=== PATIENT | female | born 1965 | race Caucasian/White ===

== ENCOUNTER 2022-05-15 11:25 | Outpatient (CLI) | payer BC, SELFPAY ==
--- NOTE | ~2022-05-15 | US_ITS ---
EXAMINATION: US pelvic complete w TV DATE: 05/15/2022 11:58 INDICATION: Menorrhagia. Patient is not postmenopausal. Comparison:No prior studies for comparison. TECHNIQUE: Multiple transabdominal and endovaginal sonographic images of the pelvis performed. FINDINGS: The uterus measures 18.6 x 7.1 x 8 cm. The endometrial complex measures 1.5 cm. The ovaries are not visualized. There is no free fluid in the pelvis. There are no abnormal masses seen on either side. IMPRESSION: 1. Enlarged uterus. Endometrial thickening measuring 1.5 cm. 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
== END 2022-05-15 11:26 ==
PROVIDERS: PCP Physician Assistant; Visit Provider Physician Assistant
DX: N92.1 Excessive and frequent menstruation with irregular cycle (principal); N85.2 Hypertrophy of uterus; R93.89 Abnormal findings on diagnostic imaging of other specified body structures
CPT/HCPCS: 76830; 76856

== ENCOUNTER 2024-05-02 10:22 | Outpatient (CLI) | payer BC, OTHER, SELFPAY ==
--- NOTE | ~2024-05-02 | MM_ITS ---
EXAMINATION: MM screening jose BI w debbie HISTORY: Screening mammogram TECHNIQUE: Craniocaudal and mediolateral oblique 3-D tomosynthesis images were obtained and synthetic 2-D images were generated. CAD analysis was submitted and interpreted. COMPARISON: No prior mammogram is available for comparison at this institution. BREAST PARENCHYMAL COMPOSITION:Not Dense. The breasts are almost entirely fatty FINDINGS: No suspicious mass, calcification, or architectural distortion are identified in either keyla ast to suggest malignancy. There has been no suspicious interval change. IMPRESSION: No mammographic evidence of malignancy. Recommend routine screening mammography in one year. BI-RADS Category 1: Negative Reviewed, dictated and finalized at location . 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
== END 2024-05-02 10:23 | disposition home or self-care (01) ==
LOC: MICIMG 10:23
PROVIDERS: PCP Physician Assistant; Visit Provider Physician Assistant
DX: Z12.31 Encounter for screening mammogram for malignant neoplasm of breast (principal)
CPT/HCPCS: 77063; 77067

== ENCOUNTER 2025-02-15 22:16 | Emergency (ER) | payer BC, OTHER, SELFPAY ==
--- OUTSIDE RECORDS SUMMARY | 2008-01-09 03:36 | XMS_ITS | Continuity of Care Document ---
Author Organization [facility] Address [address] [place] [address] Phone Care Team Providers Care Jr. Java Developer Name Role Phone Sainz OD, Robin Unavailable Unavailable Procedures Procedure Date CL Replacement - [facility] Disp W/BW Soft [facility] CL Replacement - [facility] Disp W/BW Soft [facility] CL Replacement - [facility] Disp W/BW Soft [facility] Eye Exam & Treatment Refraction CL Replacement - [facility] Disp W/BW Soft [facility] Medical CL Replacement - [facility] Disp W/BW Soft [facility] Advance Directives Directive Yes / No Effective Date File Name No Information Encounters Encounter Description Practice Location Reason(s) For Visit Diagnoses Date Provider Providers Copied on Encounter [facility], [address] [place] [address] [address], [place], [place], [id number], [place] tel:[phone] SEC [facility] No Information 8-200 8 Sainz OD Robin. [address] , [address], [place], [address], . tel:[phone] [facility], [address], [place], [place], [address], tel:[phone] [facility] No Information May-0 7-200 8 Sainz OD Robin. [address] [place] [address] , [address], [place], [place], [facility], . tel:[phone] Referring Provider: Robin Sainz OD A, [address] [place], [place] [address], [place], [place], [facility]. tel:[phone] [facility] Eye [facility], [address] [place] [address] [address], [place], [place], [address], tel:[phone] [facility] No Information Den-1 1-200 8 Sainz OD Robin. [address] [place] [address] , [address], [place], [place], [facility], . tel:[phone] [facility], [address] [place] [address] [address], [place], [place], [address], tel:[phone] [facility] No Information Aug-0 3-200 7 Sainz OD Robin. [address] [place] [address] [address], [address], [place], [place], [facility], [place]. tel:[phone] [facility], [address] [place] [address] [address], [place], [place], [address], tel:[phone] [facility] No Information Mar-0 7-200 7 Sainz OD Robin. [address] [place] [address] , [address], [place], [place], [facility], . tel:[phone] Family History Family Member Type Diagnosis Age At Onset No Information Payers Payer name Insurance type Covered libertarian ID Authoriza tion(s) No Information Social History Type Description Quantity Date Captured Comments Sex Female Smoking Status No Information Chief Complaint And Reason For Visit No Information Reason For Referral Reason For Referral No Information History Of Present Illness Encounter Date Complaint History Of Prese nt Illness No Information Functional Status Date Functional Assessmen t No Information Instructions Date Instruction Additional Infor mation No Information Assessments Type Assessment Date No Information Patient Care Teams Name Effective Dates (start - stop) Status Members No Information
--- OUTSIDE RECORDS SUMMARY | 2011-02-16 19:00 | XMS_ITS | Continuity of Care Document ---
Author Organization [facility] Address [address] [place] [address] Phone Care Team Providers Care Recruiter Coordinator Name Role Phone Amrita Veras MD Unavailable Unavailable Medications Medication Instructions Dosage Effective Dates (start - stop) Status Comments AMOXICILLIN 500 MG CAPSULE 1 TID - Active IBUPROFEN 200MG TABS 3 DIRECTE - Ac tive [facility] IBUPROFEN 200 MG TABLET 3 DIRECTE - Active Advance Directives Directive Yes / No Effective Date File Name No Information Encounters Encounter Description Practice Location Reason(s) For Visit Diagnoses Date Provider Providers Copied on Encounter [facility], [address], [place], [place], [address] , tel: [phone] [facility] No Information 0 6-201 1 Rito Crowe. [address], [address], [place], [place], [address], . tel:[phone] [facility], [address], [place], [place], [address] , tel: [phone] [facility] LUMBAGO 0-201 0 Conversion Doctor. [address], [place], [address], . [facility], [address], [place], [place], [address] , tel: [phone] [facility] ACUTE SINUSITIS NOSACUTE BRONCHITIS 9-200 7 Rito Crowe. [address], [address], [place], [place], [address], . tel: [phone] [facility], [address], [place], [place], [address] , tel: [phone] [facility] SIALOADENITIS 5200 5 Rito Crowe. [address], [address], [place], [place], [address], [place]. 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 [address], [address], [place], [place], [address], [place]. tel:[phone] Family History Family Member Type Diagnosis Age At Onset No Information Immunizations Vaccine Date Status Comments 37145 - TD administered Source: Source Unspecified Payers Payer name Insurance type Covered republican ID Authoriza tion(s) No Information Social History [...]
[2025-02-15 22:20] VITALS: BP 154/98; PULSE 98; RESP 16; TEMP 36.5; O2SAT 78
--- OUTSIDE RECORDS SUMMARY | 2025-02-16 00:36 | XMS_ITS | Clinical Summary ---
Author Organization [facility] Address [address] [place] [address] Care Team Providers Care Radio Maintainer Name Role Phone Carey Alexander Primary Care Provider [phone] Allergies No known active allergies Medications cholecalcifero l (VITAMIN D-3) 5,000 unit capsuleIndicat ions:Vitamin D Deficiency Take 1 capsule (5,000 Units total) by mouth every morning Active ferrous fumarate 325 mg (106 mg iron) tabletIndicati ons:Iron Deficiency Anemia Take 1 tablet (325 mg total) by mouth daily Active polyethylene glycol (MIRALAX) 17 gram/dose powder Take 17 g by mouth daily 507 g 08/07/19 23 Active Additional Information Patient not taking.Reported on 08/28/[address] (CYMBALTA) 60 mg capsule TAKE 1 CAPSULE BY MOUTH EVERY DAY 90 capsule 1 09/05/19 25 Active chlorthalidone (HYGROTON) 25 mg tabletIndicati ons:Hypertensi on associated with diabetes (HCC) TAKE 1 TABLET (25 MG TOTAL) BY MOUTH DAILY. 90 tablet 1 10/20/19 25 Active propranoloL (INDERAL) 40 mg tabletIndicati ons:Hypertensi on associated with diabetes (HCC) TAKE 1 TABLET BY MOUTH TWICE A DAY 180 tablet 1 10/20/19 25 Active tolterodine LA (DETROL LA) 4 mg 24 hr capsuleIndicat ions:OAB (overactive bladder) TAKE 1 CAPSULE BY MOUTH EVERY DAY 90 capsule 2 01/16/20 25 Active tirzepatide (Mounjaro) 15 mg/0.5 mL pen injector injectionIndic ations:Control led type 2 diabetes mellitus without complication, without long-term current use of insulin INJECT 15 MG UNDER THE SKIN EVERY 7 DAYS 6 mL 1 01/23/20 25 Active tirzepatide (MOUNJARO) 15 mg/0.5 mL pen injector injectionIndic ations:type 2 diabetes mellitus Inject 0.5 mL (15 mg total) under the skin every 7 days 6 mL 1 07/24/19 25 025 Discontinued Active Problems Problem Noted Date Diagnosed Date Lesion of soft palate 03/16/2024 Assessment & Plan (03/19/2024 11:09 AM CDT): This is a papilloma I explained. I recommended removal of it and she wanted to go ahead and pursue that. It was removed without difficulty and I recommended a follow up in about 3 months to recheck this area. 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 It is viral in origin. These sometimes can progress to a cancerous lesion. I recommended excision of this lesion. I do not think that the tissue needs to be sent because it appears to be completely benign. She wanted to go ahead and pursue that. It was done without difficulty. She can resume normal activities. I would like to have her follow-up in about 3 months to recheck this area. She is fine with that. Tonsil pain 02/29/2024 Assessment & Plan (02/29/2024 8:16 AM CDT): Patient states the dentist told her over a year ago she has a dhesion on her left tonsil. She states this area has never really resolved or gone away. It is very sensitive times. Unsure if it is actually growing. Recommend referral to ENT for further evaluation and full visualization as I am unable to really visualize the entire area in the office due to her mouth anatomy. Will await recommendations from ENT. Fatigue 11/29/2023 Assessment & Plan (05/30/2024 8:38 AM WHEEL ASSEMBLER): Probably multifactorial. Check labs and followup to re-evaluate Assessment & Plan (11/29/2023 9:27 AM CDT): Probably multifactorial. Check labs and followup to re-evaluate Daytime sleepiness 11/29/2023 Assessment & Plan (11/29/2023 9:28 AM CDT): Patient has noting daytime sleepiness. She is at [facility] and has obesity. Recommend a sleep study. Prefers to be at [facility]. Referral placed Morbid obesity 02/16/2023 Assessment & Plan (08/28/2024 7:16 AM CDT): Discussed the patient's BMI. The BMI is above average. BMI management plan is completed. BMI Follow-up includes: nutrition counseling, exercise counseling and education provided. Assessment & Plan (05/30/2024 7:40 AM WHEEL ASSEMBLER): Discussed the patient's BMI. The BMI is above average. BMI management plan is completed. BMI Follow-up includes: nutrition counseling, exercise counseling and education provided. Assessment & Plan (02/29/2024 7:19 AM CDT): Discussed the patient's BMI. The BMI is above average. BMI management plan is completed. BMI Follow-up includes: nutrition counseling, exercise counseling and education provided. Assessment & Plan (11/29/2023 7:24 AM CDT): Discussed the patient's BMI. The BMI is above average. BMI management plan is completed. BMI Follow-up includes: nutrition counseling, exercise counseling and education provided. Assessment & Plan (09/02/2023 7:46 PM CDT): Discussed the patient's BMI. The BMI is above average. BMI management plan is completed. BMI Follow-up includes: nutrition counseling, exercise counseling and education provided. Will stop the Ozempic in transitioned to Mounjaro for diabetes control as well as assistance with weight management. Assessment & Plan (02/16/2023 11:30 AM CDT): Discussed the patient's BMI. The BMI is above average. BMI management plan is completed. BMI Follow-up includes: nutrition counseling, exercise counseling and education provided. BMI 45.0-49.9, adult 02/16/2023 Assessment & Plan (08/28/2024 7:16 AM CDT): Discussed the patient's BMI. The BMI is above average. BMI management plan is completed. BMI Follow-up includes: nutrition counseling, exercise counseling and education provided. Assessment & Plan (05/30/2024 7:39 AM WHEEL ASSEMBLER): Discussed the patient's BMI. The BMI is above average. BMI management plan is completed. BMI Follow-up includes: nutrition counseling, exercise counseling and education provided. Assessment & Plan (02/29/2024 7:19 AM CDT): Discussed the patient's BMI. The BMI is above average. BMI management plan is completed. BMI Follow-up includes: nutrition counseling, exercise counseling and education provided. Assessment & Plan (11/29/2023 7:24 AM CDT): Discussed the patient's BMI. The BMI is above average. BMI management plan is completed. BMI Follow-up includes: nutrition counseling, exercise counseling and education provided. Assessment & Plan (09/02/2023 7:46 PM CDT): Discussed the patient's BMI. The BMI is above average. BMI management plan is completed. BMI Follow-up includes: nutrition counseling, exercise counseling and education provided. Assessment & Plan (02/16/2023 11:30 AM CDT): Discussed the patient's BMI. The BMI is above average. BMI management plan is completed. BMI Follow-up includes: nutrition counseling, exercise counseling and education provided. Iron deficiency anemia due to chronic blood loss 10/07/2022 Assessment & Plan (09/02/2023 7:44 PM CDT): Patient with history of anemia. Most recent labs show that it has normalized. May stop the iron supplementation. Recheck labs in the next year Assessment & Plan (02/16/2023 7:42 PM CDT): Check labs to follow-up anemia due to history of menorrhagia prior to hysterectomy Assessment & Plan (10/07/2022 8:27 AM CDT): History of iron-deficiency anemia secondary to menorrhagia. Status post hysterectomy for cancer so has not had any type of bleeding since surgery about 2 months ago. Recheck CBC. She is decreased her iron to 1 daily due to tolerability. If her hemoglobin hematocrit and MCV are backup into normal range will stop the iron supplementation History of endometrial cancer 06/24/2022 Overview (10/07/2022): s/p RA-TLH/BSO/SLNB=--Dr. Hewitt 08/2022 --------Stage IA G1- 2/7 mm invasion ;LOW RISK MMR-neg;Negative LVSI; HER2 negative; She has done well. - Ok to follow up with primary FARM IMPLEMENT MECHANIC for surveillance every 6 months x 2 years then annually there after. Assessment & Plan (09/09/2024 7:48 PM CDT): Recovered well from Vag HYST. In 08/[address] Hewitt at [facility] Plan from his 08/2022 note: Stage IA G1- 2/7 mm invasion ;LOW RISK MMR-neg;Negative LVSI; HER2 negative; She has done well. - Ok to follow up with primary FARM IMPLEMENT MECHANIC for surveillance every 6 months x 2 years then annually there after. Planning [id number] visits (February and August thru 02/2025) for pelvic exam here so she does't have to travel to [facility]. Exam today seem to be free of disease progression. We check in 6 months Assessment & Plan (05/30/2024 8:37 AM WHEEL ASSEMBLER): History Endometrial Cancer. She requires bi annual pelvic exam (February and August). Prefers here so she doesn't have to go to [facility]. Assessment & Plan (02/29/2024 8:17 AM CDT): Exam today did not reveal any active signs or symptoms of her endometrial cancer. Continue with very close monitoring of endometrial cancer. Patient prefers to have q.6 month exams in my office to avoid going to [place]. Next exam should be in August of 2024. Assessment & Plan (11/29/2023 8:49 AM CDT): Continue with very close monitoring of endometrial cancer. Patient prefers to have q.6 month exams in my office to avoid going to [place]. Next exam should be in February of 2024. Assessment & Plan (09/02/2023 7:45 PM CDT): Patient with history of endometrial cancer. Status post hysterectomy in August of 2022. She followed up in [address] Hewitt but prefers to do additional follow-up here to avoid the trip into [place]. Today exam was normal. No palpable nodes. Will continue to monitor q.6 months for 2 years (thru 08/2025). If patient notices any changes before then she is to follow up immediately. Assessment & Plan (02/16/2023 7:42 PM CDT): s/p RA-TLH/BSO/SLNB=--Dr. Hewitt 08/2022 --------Stage IA G1- 2/7 mm invasion ;LOW RISK MMR-neg;Negative LVSI; HER2 negative; She has done well. - Ok to follow up with primary FARM IMPLEMENT MECHANIC for surveillance every 6 months x 2 years then annually there after. Today I performed close surveillance with exam which did not show any signs of cancerous changes. Will have her follow-up in 6 months to reassess again. Assessment & Plan (10/07/2022 8:26 AM CDT): s/p RA-TLH/BSO/SLNB=--Dr. Hewitt 08/2022 --------Stage IA G1- 2/7 mm invasion ;LOW RISK MMR-neg;Negative LVSI; HER2 negative; She has done well. - Ok to follow up with primary FARM IMPLEMENT MECHANIC for surveillance every 6 months x 2 years then annually there after. Assessment & Plan (08/30/2022 9:06 PM CDT): Patient recently diagnosed with endometrial cancer. It was confined so patient will not require radiation or chemotherapy. She will require very close follow-up. This will be Q 6 months with exam. Diabetes mellitus type 2, controlled, without co mplications 06/22/2022 Assessment & Plan (09/09/2024 7:49 PM CDT): Check labs Assessment & Plan (05/30/2024 8:38 AM WHEEL ASSEMBLER): tressed importance of continued A1c control to minimize the terminal system operator effects of diabetes. Bring accuchecks to office when instructed to do so. Check A1c about every 3-6 months. Take medication as prescribed. Get annual eye exam. Encouraged IBSMARK/Statin if able to tolerate. Encouraged weight control and encouraged diabetic diet and exercise. A1c is stable at 6.6. ContinueMounjaro 10 Assessment & Plan (02/29/2024 8:16 AM CDT): Stressed importance of continued A1c control to minimize the prison effects of diabetes. Bring accuchecks to office when instructed to do so. Check A1c about every 3-6 months. Take medication as prescribed. Get annual eye exam. Encouraged BISMARK/Statin if able to tolerate. Encouraged weight control and encouraged diabetic diet and exercise. Continue Mounjaro 10 Assessment & Plan (11/29/2023 8:58 AM CDT): Stressed importance of continued A1c control to minimize the terminal system operator effects of diabetes. Bring accuchecks to office when instructed to do so. Check A1c about every 3-6 months. Take medication as prescribed. Get annual eye exam. Encouraged BISMARK/Statin if able to tolerate. Encouraged weight control and encouraged diabetic diet and exercise. Patient is not recognizing when she has full with the majora. A1c has been tightly controlled but will increase to 7.5 to see if we can assist in weight reduction. New prescription sent. Patient will follow up in February with labs at that time Assessment & Plan (09/02/2023 7:46 PM CDT): Stressed importance of continued A1c control to minimize the terminal system operator effects of diabetes. Bring accuchecks to office when instructed to do so. Check A1c about every 3-6 months. Take medication as prescribed. Get annual eye exam. Encouraged BISMARK/Statin if able to tolerate. Encouraged weight control and encouraged diabetic diet and exercise. Patient would still benefit from additional weight loss. Will have her stop the Ozempic and transitioned to Mounjaro 5 mg weekly. Will titrate up as needed. Assessment & Plan (10/07/2022 8:59 AM CDT): Stressed importance of continued A1c control to minimize the terminal system operator effects of diabetes. Bring accuchecks to office when instructed to do so. Check A1c about every 3-6 months. Take medication as prescribed. Get annual eye exam. Encouraged BISMARK/Statin if able to tolerate. Encouraged weight control and encouraged diabetic diet and exercise. Patient is tolerating the Ozempic well. She is preparing to increase to 0.5 mg per week. If tolerated she is to call in the 3rd injection this box and will increase it to 1 mg. Will check CMP to make sure she is tolerating the product well. Follow- up in mid December for A1c and CMP at that time Assessment & Plan (08/09/2022 8:41 PM WHEEL ASSEMBLER): Stressed importance of continued A1c control to minimize the prison effects of diabetes. Bring accuchecks to office when instructed to do so. Check A1c about every 3-6 months. Take medication as prescribed. Get annual eye exam. Encouraged BISMARK/Statin if able to tolerate. Encouraged weight control and encouraged diabetic diet and exercise. Patient is unable to tolerate metformin at high enough doses to be effective. She is experiencing soft stool and diarrhea and GI upset. Recommend considering Mounjaro. She will benefit from diabetes control as well as weight loss. Assessment & Plan (06/22/2022 2:09 PM WHEEL ASSEMBLER): New Diagnosis Diabetes. Discussed with patient at length diabetes, pathogenesis, prison sequela, end organ damage, diet/exercise/weight loss, and medication options for treatment. Reviewed A1c, normal values, goals of treatment and need to monitor about every 90 days until well regulated. Discussed importance of annual DM eye exams. Reviewed benefits of BISMARK and Statin as a diabetic. Discussed how DM affects the kidney's and ways to monitor. Reviewed increased CV risk and importance of tight control. Reviewed foot care and need to wear shoes to check feet on a regular basis to avoid terminal system operator problems. Offered referral to shipping manager. Discussed treatment options. Reviewed metformin, G LP is, SG LTsand insulin. Reviewed risks benefits alternatives side effects and proper use. She is most interested in starting Mounjaro. This will help manage her diabetes but also help contribute to assistance with weight loss effort. Encouraged her to monitor her intake and increase activity as she is able. Will send out prescription for 5 mg to take weekly As able to provide samples for 2.5 mg to start now x 4 weeks then start the 5mg. Reviewed proper injection technique patient was able to reach back and does feel comfortable with giving herself an injection. No history of pancreatitis. Breast cancer screening by mammogram 05/11/2022 Assessment & Plan (09/02/2023 7:43 PM CDT): Mammogram order provided. Strongly encouraged to get scheduled Assessment & Plan (02/16/2023 7:43 PM CDT): Mammogram order provided Assessment & Plan (10/07/2022 8:26 AM CDT): Mammogram order provided at last visit. She will call to schedule Assessment & Plan (05/11/2022 11:49 AM WHEEL ASSEMBLER): Mammogram order provided Ventral hernia without obstruction or gangrene 0 02/11/2020 Overview (02/11/2020): 01/2020 CT -- infraumbilical ventricular abdominal wall hernia containing mesenteric fat and nonobstructing loops of the small bowel. Assessment & Plan (02/11/2020 9:14 AM CDT): Reviewed s/s incarcerated bowel. Will monitor closely and discuss referral at next visit, after her acute pain has resolved. Fatty liver 02/11/2020 Overview (02/11/2020): CT done in January of 2020. Assessment & Plan (02/11/2020 9:14 AM CDT): Reviewed diet and will continue to monitor liver enzymes. Seasonal allergies 08/22/2019 Assessment & Plan (08/22/2019 9:45 PM CDT): Start Singulair, antihistamine (Claritin OR Zyrtec), Mucinex 12hour and Steroid nasal spray (Flonase). Push fluids. Rest. Supportive care. If sxs worsen or don\'t improve, pt is to followup in the office. Other fatigue 01/28/2019 Assessment & Plan (02/16/2023 7:43 PM CDT): Probably multifactorial. Check labs and followup to re-evaluate Assessment & Plan (05/11/2022 11:45 AM WHEEL ASSEMBLER): Probably multifactorial. Check labs and followup to re-evaluate Assessment & Plan (01/28/2019 6:16 PM CDT): Probably multifactorial. Check labs and followup to re-evaluate Lower extremity edema 01/28/2019 Assessment & Plan (04/03/2019 1:43 PM CDT): Improving with diet, sodium reduction. Use support hose. Exercise/lose weight Assessment & Plan (01/28/2019 6:16 PM CDT): Unknown etiology. Start with Lasix. Eat a daily banana to avoid K supplement. Keep elevated. Decrease sodium OAB (overactive bladder) 01/20/2019 Assessment & Plan (11/29/2023 8:56 AM CDT): Continue with Detrol as symptoms are stable Assessment & Plan (05/11/2022 11:43 AM WHEEL ASSEMBLER): This is a significant, separately identifiable problem that was evaluated and managed on the same day as the wellness exam Restart DetrolLA 1 daily. Will refer to grinder outside diameter for evaluation of her menorrhagia and encouraged her to discuss possibility of stress urine incontinence as a component of with the overactive bladder as it seems to have some positional relationship as well as increased symptoms with heavier bleeding. She is tolerated well in the past. Hypertension associated with diabetes 01/20/2019 Assessment & Plan (05/30/2024 8:37 AM WHEEL ASSEMBLER): Bp is stable/in acceptable range for any co-morbidities. Encouraged to limit sodium intake and exercise for weight control. Stressed importance of continued A1c control to minimize the prison effects of diabetes. Bring accuchecks to office when instructed to do so. Check A1c about every 3-6 months. Take medication as prescribed. Get annual eye exam. Encouraged BISMARK/Statin if able to tolerate. Encouraged weight control and encouraged diabetic diet and exercise. A1c is stable at 6.6. ContinueMounjaro 10 Continue propranolol 40 mg b.i.d. and chlorthalidone 25 daily Assessment & Plan (11/29/2023 8:57 AM CDT): Bp is stable/in acceptable range for any co-morbidities. Encouraged to limit sodium intake and exercise for weight control. Stressed importance of continued A1c control to minimize the prison effects of diabetes. Bring accuchecks to office when instructed to do so. Check A1c about every 3-6 months. Take medication as prescribed. Get annual eye exam. Encouraged BISMARK/Statin if able to tolerate. Encouraged weight control and encouraged diabetic diet and exercise. Continue propranolol 40 mg and chlorthalidone 25. Patient is not recognizing when she has full with the majora. A1c has been tightly controlled but will increase to 7.5 to see if we can assist in weight reduction. New prescription sent. Patient will follow up in February with labs at that time Assessment & Plan (09/02/2023 7:43 PM CDT): Bp is stable/in acceptable range for any co-morbidities. Encouraged to limit sodium intake and exercise for weight control. Continue Inderal 40 mg b.i.d. and chlorthalidone 25 Assessment & Plan (02/16/2023 7:43 PM CDT): Bp is stable/in acceptable range for any co-morbidities. Encouraged to limit sodium intake and exercise for weight control. Continue propranolol and chlorthalidone Assessment & Plan (10/07/2022 8:25 AM CDT): Bp is stable/in acceptable range for any co-morbidities. Encouraged to limit sodium intake and exercise for weight control. Continue chlorthalidone and metoprolol. She states she missed her medicines this morning which is probably why it is just slightly elevated. Monitor at home Assessment & Plan (08/30/2022 9:05 PM CDT): Stressed importance of continued A1c control to minimize the terminal system operator effects of diabetes. Bring accuchecks to office when instructed to do so. Check A1c about every 3-6 months. Take medication as prescribed. Get annual eye exam. Encouraged BISMARK/Statin if able to tolerate. Encouraged weight control and encouraged diabetic diet and exercise. Patient was unable to tolerate metformin due to GI issues. Will try Mounjaro. Reviewed risks benefits alternatives side effects and proper use. Will start at 2.5. Titrate up as tolerated. Recheck CMP in about a month. Assessment & Plan (06/22/2022 2:06 PM WHEEL ASSEMBLER): Bp is stable/in acceptable range for any co-morbidities. Encouraged to limit sodium intake and exercise for weight control. Continue current regimen Assessment & Plan (05/11/2022 11:44 AM WHEEL ASSEMBLER): This is a significant, separately identifiable problem that was evaluated and managed on the same day as the wellness exam Patient needs to restart her Inderal 40 mg b.i.d.. She would like to restart the beta-jojo as she likes the extra help with her anxiety. Stressed the importance of taking medication as indicated to avoid a blood pressure of 160/110 and the side effects and sequela that can result from it. Instead of starting Lasix will start chlorthalidone 25 as she does seem to retain a little bit of fluid. She will be checking electrolytes in the next week to make sure they are stable. Encouraged her to take home readings and we should see a drop in the pressure is in the next week or 2. She will be back in the office in 4 weeks. If she has any problems or concerns she is to call the office immediately Assessment & Plan (01/28/2019 6:13 PM CDT): Bp is elevated range for any co-morbidities. Encouraged to limit sodium intake and exercise for weight control. Will add diuretic and see how control changes. Lumbar back pain 01/20/2019 Moderate episode of recurrent major depressive d isorder 01/20/2019 Assessment & Plan (05/30/2024 8:37 AM WHEEL ASSEMBLER): Doing well with Cymbalta 30 but would benefit to increase to 60. May take 2/30 mg tablets until exhausted new prescription for 60 was sent to pharmacy. Assessment & Plan (11/29/2023 8:57 AM CDT): Depression symptoms have been stable with Cymbalta 30 Assessment & Plan (09/02/2023 7:43 PM CDT): Symptoms are stable with the Cymbalta 30 mg. Refills available at pharmacy Assessment & Plan (05/11/2022 11:44 AM WHEEL ASSEMBLER): This is a significant, separately identifiable problem that was evaluated and managed on the same day as the wellness exam Patient would like to restart Cymbalta. She ran out of it and did not refill it primarily due to cost. Her insurance has now change. Will restart 30 mg daily reassess in a month and bump up to 60 if tolerated. Assessment & Plan (01/28/2019 6:14 PM CDT): Continue the Cymbalta Anxiety 01/20/2019 Vitamin D deficiency 01/20/2019 Assessment & Plan (05/30/2024 8:37 AM WHEEL ASSEMBLER): Supplement Assessment & Plan (11/29/2023 8:57 AM CDT): Supplement Assessment & Plan (05/11/2022 11:44 AM WHEEL ASSEMBLER): Supplement Bilateral leg numbness 03/23/2018 Resolved Problems Problem Noted Date Diagnosed Date Resolved Date Diabetic neuropathy, type II diabetes mellitus 05/30/2024 05/30/2024 Need for Tdap vaccination 05/30/2024 Assessment & Plan (05/30/2024 8:38 AM WHEEL ASSEMBLER): Tdap updated in the office today Need for influenza vaccination 05/30/2024 09/09/2024 Assessment & Plan (05/30/2024 8:38 AM WHEEL ASSEMBLER): Flu vaccine updated in the office today Diabetic neuropathy, type II diabetes mellitus 08/09/2022 09/02/2023 Assessment & Plan (02/16/2023 7:42 PM CDT): Stressed importance of continued A1c control to minimize the prison effects of diabetes. Bring accuchecks to office when instructed to do so. Check A1c about every 3-6 months. Take medication as prescribed. Get annual eye exam. Encouraged BISMARK/Statin if able to tolerate. Encouraged weight control and encouraged diabetic diet and exercise. Continue with Ozempic 1 mg. Will continue to monitor closely. BMI 50.0-59.9, adult 07/29/2022 023 Assessment & Plan (10/07/2022 8:26 AM CDT): Discussed the patient's BMI. The BMI is above average. BMI management plan is completed. BMI Follow-up includes: nutrition counseling, exercise counseling and education provided. Assessment & Plan (08/30/2022 9:06 PM CDT): Discussed the patient's BMI. The BMI is above average. BMI management plan is completed. BMI Follow-up includes: nutrition counseling, exercise counseling and education provided. Assessment & Plan (07/29/2022 2:52 PM WHEEL ASSEMBLER): Discussed the patient's BMI. The BMI is above average. BMI management plan is completed. BMI Follow-up includes: nutrition counseling, exercise counseling and education provided. Complex atypical endometrial hyperplasia 06/24/2022 08/30/2022 Overview (06/24/2022): Added automatically from request for surgery [id number] Excessive bleeding in premenopausal period 06/22/2022 08/30/2022 Assessment & Plan (06/22/2022 2:07 PM WHEEL ASSEMBLER): Reviewed with patient the Provera is probably shutting her thickened lining right now. Concern with possibility for anemia so encouraged her to start iron [id number] with vitamin-C. Will await recommendations from Dr. Hewitt, Gyne Onc as she is expecting hysterectomy. BMI 50.0-59.9, adult 06/22/2022 023 Assessment & Plan (06/22/2022 2:07 PM WHEEL ASSEMBLER): Discussed the patient's BMI. The BMI is above average. BMI management plan is completed. BMI Follow-up includes: nutrition counseling, exercise counseling and education provided. Morbid obesity 06/22/2022 02/16/2023 Assessment & Plan (10/07/2022 8:26 AM CDT): Discussed the patient's BMI. The BMI is above average. BMI management plan is completed. BMI Follow-up includes: nutrition counseling, exercise counseling and education provided. Assessment & Plan (08/30/2022 9:05 PM CDT): Discussed the patient's BMI. The BMI is above average. BMI management plan is completed. BMI Follow-up includes: nutrition counseling, exercise counseling and education provided. Assessment & Plan (08/09/2022 8:32 PM WHEEL ASSEMBLER): Discussed the patient's BMI. The BMI is above average. BMI management plan is completed. BMI Follow-up includes: nutrition counseling, exercise counseling and education provided. Assessment & Plan (06/22/2022 2:07 PM WHEEL ASSEMBLER): Discussed the patient's BMI. The BMI is above average. BMI management plan is completed. BMI Follow-up includes: nutrition counseling, exercise counseling and education provided. Sore throat 05/11/2022 09/02/2023 Assessment & Plan (05/11/2022 11:46 AM WHEEL ASSEMBLER): This is a significant, separately identifiable problem that was evaluated and managed on the same day as the wellness exam Patient started noting sore throat congestion fever in the last 24-48 hours. She had a negative COVID flu and strep test here in the office. Advised there is a chance for a false negative. If her symptoms persist she needs to follow-up for retesting. Encouraged Tylenol or Motrin as needed for aches and pains or fever. She can use antihistamine and Mucinex to assist with her symptoms at this point. Stressed the importance of avoiding any product with Sudafed as it will have a negative effect on her already high blood pressure. Annual physical exam 05/11/2022 024 Assessment & Plan (09/02/2023 7:45 PM CDT): Encouraged healthy lifestyle, good nutrition and exercise. Encouraged Calcium and Vitamin D and weight bearing exercise for bone health. Reviewed immunizations Reviewed age appropirate screenings. Assessment & Plan (05/11/2022 11:46 AM WHEEL ASSEMBLER): Encouraged healthy lifestyle, good nutrition and exercise. Encouraged Calcium and Vitamin D and weight bearing exercise for bone health. Reviewed immunizations Reviewed age appropirate screenings. Menorrhagia with irregular cycle 05/11/2022 10/07/2022 Assessment & Plan (05/11/2022 11:48 AM WHEEL ASSEMBLER): This is a significant, separately identifiable problem that was evaluated and managed on the same day as the wellness exam Patient has had severe menorrhagia for the last 3-4 years. She had uterine ablation in 2016 and states had some relief for a few years but then started noticing heavy return of her flow. She states she will completely saturate a pad an hour and drop clots bigger than her fist just walking from the bedroom to the bathroom. She is bleeding up to a week every 2-4 weeks. Will check blood work for anemia and other underlying causes for the bleeding including FSH and LH to see if she is truly menopausal based on her age/labs. Check ultrasound. I let patient know there is a concern for cancer as she is bleeding this heavy consistently. She states her mom and sister had similar bleeding patterns as they reached menopause . She is seen Dr. Florence in the past would prefer to follow-up. Provided the information on her take-home sheet for her to contact the office. If she does not get an visit in the next 2-4 weeks she needs to call the office as this needs to be taking care of more urgently. She voices understanding and is in agreement with the plan Lipid screening 05/11/2022 09/02/2023 Assessment & Plan (05/11/2022 11:48 AM WHEEL ASSEMBLER): Check labs Colon cancer screening 05/11/202210/07 Assessment & Plan (05/11/2022 11:49 AM WHEEL ASSEMBLER): Patient would like to repeat Cologuard. She thinks she did it 3-4 years ago. I do not have a record and her current chart which means it was at least 3 years ago. Flank pain 06/02/2020 05/11/2022 Assessment & Plan (06/02/2020 8:23 PM WHEEL ASSEMBLER): See abdominal pain Hematuria 06/02/2020 05/11/2022 Assessment & Plan (06/02/2020 8:24 PM WHEEL ASSEMBLER): Not enough available to send for culture from the office. Will provide order to complete at the lab. Abdominal pain 01/25/2020 05/11/2022 Assessment & Plan (06/02/2020 8:19 PM WHEEL ASSEMBLER): Right flank pain with pain into RLQ and hematuria. Suspect kidney stone -- I also suspect she may have been constipated, causing right sided pain. With the nausea/emesis, recommend considering CT but decided to start with KUB---Reviewed with patient if has increased pain, fever, chills, sweats or unable to urinate or pass stools she is to go to the ER for immediate evaluation. Assessment & Plan (02/11/2020 9:10 AM CDT): RLQ over to suprapubic pain with back pain. Increasing pain, decreasing appetitie. Peritoneal signs (pain with walking) R/o appendix, ovary, bowel involvement like diverticulitis). Was not able to schedule CT same day so instructed patient to consider ER if she has trouble overnight. CT was scheduled for the next morning. It showed 1. No definitive evidence of bowel obstruction 2. Diffuse mucosal thickening of the distal small bowel with adjacent fat stranding fluid which is concerning for enteritis of infectious or inflammatory etiology. No definitive evidence of perforation or drainable fluid collection. 3. Infraumbilical ventral abdominal wall hernia containing mesenteric fat and nonobstructed loop of small bowel. 4. Small amount of free fluid in the right lower quadrant of the abdomen and pelvis which is likely reactive to the enteritis 5. Appendix is visualized without definitive evidence of pericecal or. Appendical inflammatory changes to suggest appendicitis. 6. Mild mucosal thickening of the descending colon and sigmoid colon which is likely related to under distention and less likely to component of colitis or infectious or inflammatory etiology. 7. Scattered colonic diverticula without definitive evidence of diverticulitis 8. Mild circumferential mucosal thickening of the urinary bladder which may be related to distention versus cystitis. Clinical correlation with urinalysis is recommended as clinically indicated. 9. Diffuse hepatic cyst steatosis. The patient was started on Flagyl and Cipro. She is to monitor her symptoms very closely. If she has any increased pain guarding fever chills or sweats she is to call immediately or go to the ER. Discussed risk of perforation and to be made aware of the symptoms and seek care immediately. Encouraged fluids and only for a few days until her stomach settles the pain improves and she may then slowly good progress to a brat diet before continuing on. She is to call early next week with an update on her symptoms. Strep pharyngitis 05/25/2019 05/11/2022 Assessment & Plan (05/28/2019 7:48 PM WHEEL ASSEMBLER): Start antibiotic. Push fluids. Rest. Supportive care. If sxs worsen or don\'t improve, pt is to followup in the office. Reviewed was to avoid continued spread of the strep throat. Cough 05/25/2019 05/11/2022 Assessment & Plan (03/08/2021 4:02 PM CDT): Patient to presume positive COVID until results are available and self isolate for 10 days from the onset of sxs. Check COVID test thru [facility] collection site in [place]. If positive, complete quarantine and consider monoclonal antibodies. If negative, treat sxs and observe. Start Medrol dosepack and Cheratussin. Treat sxs with Tylenol, Cough/cold medication otc and add VitD 5,000IU daily and Zinc 50mg daily. Monitor sxs and call or go to the ER if has any of the following: --trouble breathing --persistent pain or pressure in the chest --new confusion --inability to wake or stay awake -- bluish lips or face If patient has been in close contact with anyone, they should be notified and instructed to quarantine per CDC guidelines for 14 days after last exposure to the positive COVID patient and monitor closely for symptoms of COVID. If they appear they should be tested. Close contact includes: --You were within 6 feet of someone who has COVID-19 for a total of 15 minutes or more --You provided care at home to someone who is sick with COVID-19 --You had direct physical contact with the person (hugged or kissed them) --You shared eating or drinking utensils --They sneezed, coughed, or somehow got respiratory droplets on you Additional Steps to avoid exposure/spread include: Avoid crowded places where close contact with others may occur, such as shopping centers, movie theaters, dormitories, or stadiums. Avoid transit where close contact with others may occur, such as planes, trains, and buses. Maintain a distance of approximately 6 feet from other people whenever possible (spacing out if you are in a line, leaving 2 seats in between others at a waiting room when possible). Wash your hands with soap and water often. If needed, use a hand fibrous wallboard inspector that contains at least 60% alcohol. Clean and disinfect frequently touched surfaces such as tables, doorknobs, countertops, etc daily. Avoid touching your eyes, nose, and mouth when possible. Assessment & Plan (05/28/2019 7:47 PM WHEEL ASSEMBLER): Supportive care. Cheratussing to pharmacy. Upper respiratory infection 04/03/2019 05/11/2022 Assessment & Plan (04/03/2019 1:41 PM CDT): Start antibiotic, antihistamine, and Steroid nasal spray. Robitussin with codeine prn cough. Push fluids. Rest. Supportive care. If sxs worsen or don\'t improve, pt is to followup in the office. BMI 50.0-59.9, adult ([facility]) 04/03/2019 05/11/2022 Assessment & Plan (08/22/2019 11:46 AM CDT): Obesity is unchanged. Discussed the patient's BMI. The BMI is above average. BMI management plan is completed. BMI Follow-up includes: nutrition counseling, exercise counseling and education provided. Assessment & Plan (05/28/2019 7:46 PM WHEEL ASSEMBLER): Obesity is unchanged. Discussed the patient's BMI. The BMI is above average. BMI management plan is completed. BMI Follow-up includes: nutrition counseling, exercise counseling and education provided. Assessment & Plan (04/03/2019 1:44 PM CDT): Obesity is unchanged. Discussed the patient's BMI. The BMI is above average. BMI management plan is completed. BMI Follow-up includes: nutrition counseling, exercise counseling and education provided. Morbid obesity with BMI of 50.0-59.9, adult 01/23/2019 10/07/2022 Assessment & Plan (05/11/2022 11:45 AM WHEEL ASSEMBLER): Discussed the patient's BMI. The BMI is above average. BMI management plan is completed. BMI Follow-up includes: nutrition counseling, exercise counseling and education provided. Assessment & Plan (08/22/2019 11:46 AM CDT): Obesity is unchanged. Discussed the patient's BMI. The BMI is above average. BMI management plan is completed. BMI Follow-up includes: nutrition counseling, exercise counseling and education provided. Assessment & Plan (05/28/2019 7:47 PM WHEEL ASSEMBLER): Obesity is unchanged. Discussed the patient's BMI. The BMI is above average. BMI management plan is completed. BMI Follow-up includes: nutrition counseling, exercise counseling and education provided. Assessment & Plan (04/03/2019 1:44 PM CDT): Obesity is unchanged. Discussed the patient's BMI. The BMI is above average. BMI management plan is completed. BMI Follow-up includes: nutrition counseling, exercise counseling and education provided. Assessment & Plan (01/23/2019 11:59 AM CDT): Obesity is unchanged. Discussed the patient's BMI. The BMI is above average. BMI management plan is completed. BMI Follow-up includes: nutrition counseling, exercise counseling and education provided. Menorrhagia with regular cycle 01/20/2019 05/11/2022 Assessment & Plan (08/22/2019 9:45 PM CDT): S/p ablation with 2 heavy periods these last 2 months. If persists, may consider US Neuropathy 01/20/2019 05/30/2024 Pre-diabetes 01/20/2019 06/22/2022 Assessment & Plan (05/11/2022 11:44 AM WHEEL ASSEMBLER): Pre-diabetes/hyperglycemia is a precursor to Dm. Stressed importance of working on diet (decrease your simple sugars and one carbohydrate with each meal) and increase you exercise to achieve weight loss and this will help prevent you from progressing to diabetes. Assessment & Plan (04/03/2019 1:43 PM CDT): Pre-diabetes is a precursor to Dm. Stressed importance of working on diet (decrease your simple sugars and one carbohydrate with each meal) and increase you exercise to achieve weight loss and this will help prevent you from progressing to diabetes. Assessment & Plan (01/28/2019 6:14 PM CDT): Pre-diabetes is a precursor to Dm. Stressed importance of working on diet (decrease your simple sugars and one carbohydrate with each meal) and increase you exercise to achieve weight loss and this will help prevent you from progressing to diabetes. Immunizations Immunization Administration Dates Next Due Influenza, Quadrivalent, Spl it, Preservative Free, Intramuscular 03/11/2015 Influenza, Trivalent, Preser vative Free, Intramuscular 05/30/2024 Influenza, Unspecified 08/28/2024(Deferr ed: Patient Refused),07/15/2021(Deferred: Patient Refused),03/14/2019 Td, adsorbed 10/27/2004 Tdap 05/30/2024 Surgical History Surgery Date Site/Laterality Comments HERNIA REPAIR GALLBLADDER SURGERY DILATION AND CURETTAGE OF UTERUS KNEE SURGERY Left HYSTERECTOMY HYSTERECTOMY 08/07/2022 N/A Medical History Medical History Date Comments Depression Anxiety Obesity Arthritis Diabetes mellitus (HCC) HTN (hypertension) Family History Medical History Relation Name Comments No Known Problems Daughter 1 No Known Problems Daughter 2 Arthritis Father Diabetes Father Hypertension Mother Osteoporosis Mother Cancer Mother's Brother Kidney Cancer Mother's Sister Breast No Known Problems Son 1 No Known Problems Son 2 Anesthesia problems Neg Hx Relation Name Status Comments Daughter 1 Alive Daughter 2 Alive Father Alive Mother Alive Mother's Brother Mother's Sister Son 1 Alive Son 2 Alive Social History Tobacco Use Types Packs/Day Years Used Date Smoking Tobacco: Never Smokeless Tobacco: Never Tobacco Cessation:Counseling Given: Not Answered Alcohol Use Standard Drinks/Week Comments Yes 0 (1 standard drink = 0.6 oz pur e alcohol) AUDIT-C Answer Date Recorded Q1: How often do you have a drink containing alc ohol? Monthly or less 08/28/2024 Q2: How many drinks containi ng alcohol do you have on a typical day when you are drinking? 1 or 2 08/28/2024 Q3: How often do you have si x or more drinks on one occasion? Never 08/28/2024 PHQ-2 Answer Date Recorded PHQ-2 Total Score (If total score is 3 or more points, staff should administer the PHQ-9) 0 08/28/2024 Personal Safety Answer Date Recorded Getting School Help Needed Denies 06/11 Comments No Sex and Gender Information Value Date Recorded Sex Assigned at Not on file Legal Sex Female 8:37 AM WHEEL ASSEMBLER Gender Identity Not on file Sexual Orientation Not on file Obstetrics History Last Filed Vital Signs Vital Sign Reading Time Taken Comments Blood Pressure 126/80 08/28/2024 7:12 AM CDT Pulse 82 08/28/2024 7:12 AM CDT Temperature 36.9 C (98.5 F) 08/28/2024 7:12 AM CDT Respiratory Rate 18 03/16/2024 11:07 AM CDT Oxygen Saturation 95% 08/28/2024 7:12 AM CDT Inhaled Oxygen Concentration - - Weight 153.3 kg (338 lb) 08/28/2024 7:12 AM CDT Height 175.3 cm (5' 9) 08/28/2024 7:12 AM CDT Body Mass Index 49.91 08/28/2024 7:12 AM CDT Plan of Treatment Health Maintenance Due Date Last Done Comments Hepatitis C Screening 1966 Dilated Eye Exam 1966 Foot Exam 1966 Hepatitis B Screening 1984 Pneumococcal vaccine <65 (1 of 2 - PCV) 1985 Zoster Vaccine (1 of 2) 2016 Covid-19 Vaccine (2 - 2023-2 5 season) 2024 08/20/2020 Regular Well Visit/Exam 18-64 08/26/2024 08/27/2023, 05/11/2022 Influenza Vaccine (#1) 2025 , 06/04/2022, 03/14/2019, Additional history exists Hemoglobin A1C 02/17/2025 08/17/2024, 02/12, 08/11/2023, Additional history exists Albumin Creatinine Ratio, Urine 02/27/2025 Breast Cancer Screening-Mammogram 05/02/2025 05/02/2024, 01/05/2019, 01/03/2019, Additional history exists Colon Cancer Screening-DNA Stool 05/25/2025 05/25/20 22 Lipid Panel 08/17/2025 08/17/2024, 02/12, 08/11/2023, Additional history exists eGFR 08/17/2025 08/17/2024, 02/12, 08/11/2023, Additional history exists Depression Screening 08/28/2025 08/28/2024, 05/30/2024, 02/29/2024, Additional history exists DTaP/Tdap/Td Vaccine (2 - Td or Tdap) 05/30/2034 05/30/2024, 10/27/2004 Colon Cancer Screening-FIT Discontinued 05/25/2022 Procedures Procedure Name Priority Date/Time Associated Diagnosis Comments COMPREHENSIVE METABOLIC PANEL Routine 08/17/2024 6:12 AM WHEEL ASSEMBLER Controlled type 2 diabetes mellitus without complication, without long-term current use of insulin (HCC) HEMOGLOBIN A1C Routine 08/17/2024 6:12 AM WHEEL ASSEMBLER Controlled type 2 diabetes mellitus without complication, without long-term current use of insulin (HCC) LIPID PANEL Routine 08/17/2024 6:12 AM WHEEL ASSEMBLER Controlled type 2 diabetes mellitus without complication, without long-term current use of insulin (HCC) HM MAMMOGRAPHY Routine 05/02/2024 8:24 AM WHEEL ASSEMBLER ALBUMIN CREATININE RATIO, URINE Routine 02/28/2024 8:55 AM CDT Controlled type 2 diabetes mellitus without complication, without long-term current use of insulin (HCC) STOOL DNA COLOGUARD Routine 05/25/2022 10:55 PM WHEEL ASSEMBLER Colon cancer screening from Last 3 Months or Most Recently Relevant to Health Maintenance Results * (ABNORMAL) Hemoglobin A1c (08/17/2024 6:12 AM WHEEL ASSEMBLER) Hgb A1C 6.6(H) <5.7 % of total Hgb [facility] Comment: For someone without known diabetes, a hemoglobin A1c value of 6.5% or greater indicates that they may have diabetes and this should be confirmed with a follow-up test. For someone with known diabetes, a value <7% indicates that their diabetes is well controlled and a value greater than or equal to 7% indicates suboptimal control. A1c targets should be individualized based on duration of diabetes, age, comorbid conditions, and other considerations. Currently, no consensus exists regarding use of hemoglobin A1c for diagnosis of diabetes for children. Blood 08/17/2024 6:12 AM WHEEL ASSEMBLER 08/17/2024 6:13 AM WHEEL ASSEMBLER Narrative [facility] - 08/18/2024 3:13 AM WHEEL ASSEMBLER FASTING:YES PATIENT UNABLE TO VOID; ADVISED TO RETURN FOR COLLECTION. FASTING: YES Carey HERNANDEZ LAB BLOOD ORDERABLES Final Result [facility] [address] [place] [address] * (ABNORMAL) Lipid panel (08/17/2024 6:12 AM WHEEL ASSEMBLER) Cholesterol 168 <200 mg/dL [facility] HDL 46(L) > OR = 50 mg/dL [facility] Triglycerides 101 <150 mg/dL [facility] LDL 103(H) mg/dL (calc) [facility] Comment: Reference range: <100 Desirable range <100 mg/dL for primary prevention; <70 mg/dL for patients with CHD or diabetic patients with > or = 2 CHD risk factors. LDL-C is now calculated using the Tonya calculation, which is a validated novel method providing better accuracy than the Friedewald equation in the estimation of LDL-C. Gui WHEELER et al. MARYANN. 2013;310(19): 2189-3120 (http://education.HomeWellness/faq/RDX893) Chol/HDL ratio 3.7 <5.0 (calc) [facility] Non-HDL, (LDL+VLDL) 122 <130 mg/dL (calc) [facility] Comment: For patients with diabetes plus 1 major ASCVD risk factor, treating to a non-HDL-C goal of <100 mg/dL (LDL-C of <70 mg/dL) is considered a therapeutic option. Blood 08/17/2024 6:12 AM WHEEL ASSEMBLER 08/17/2024 6:13 AM WHEEL ASSEMBLER Narrative [facility] - 08/18/2024 3:13 AM WHEEL ASSEMBLER FASTING:YES PATIENT UNABLE TO VOID; ADVISED TO RETURN FOR COLLECTION. FASTING: YES Carey HERNANDEZ LAB BLOOD ORDERABLES Final Result [facility] [id number] [id number] * (ABNORMAL) Comprehensive metabolic panel (08/17/2024 6:12 AM WHEEL ASSEMBLER) Pathologist [facility] [place] Glucose 130(H) 65 - 99 mg/dL [facility] Comment: Fasting reference interval For someone without known diabetes, a glucose value >125 mg/dL indicates that they may have diabetes and this should be confirmed with a follow-up test. BUN 16 7 - 25 mg/dL [facility] Creatinine 0.83 0.50 - 1.03 mg/dL [facility] eGFR 82 > OR = 60 mL/min/1.7 3m2 [facility] BUN/creat ratio SEE NOTE: 6 - (calc) [facility] Comment: Not Reported: BUN and Creatinine are within reference range. Sodium 139 135 - 146 mmol/L [facility] Potassium, pl 4.1 3.5 - 5.3 mmol/L [facility] Chloride 102 98 - 110 mmol/L [facility] CO2 30 20 - 32 mmol/L [facility] Calcium 9.1 8.6 - 10.4 mg/dL [facility] Protein, sr 6.7 6.1 - 8.1 g/dL [facility] Albumin 4.1 3.6 - 5.1 g/dL [facility] GLOBULIN 2.6 1.9 - 3.7 g/dL (calc) [facility] Alb/glob ratio 1.6 1.0 - 2.5 (calc) [facility] Bilirubin, total 0.6 0.2 - 1.2 mg/dL [facility] Alk phos 73 37 - 153 U/L [facility] AST 14 10 - 35 U/L [facility] ALT (SGPT) 16 6 - 29 U/L [facility] Blood 08/17/2024 6:12 AM WHEEL ASSEMBLER 08/17/2024 6:13 AM WHEEL ASSEMBLER Narrative [facility] - 08/18/2024 3:13 AM WHEEL ASSEMBLER FASTING:YES PATIENT UNABLE TO VOID; ADVISED TO RETURN FOR COLLECTION. FASTING: YES Carey HERNANDEZ LAB BLOOD ORDERABLES Final Result [facility] [id number] [place] [phone] * HM MAMMOGRAPHY (05/02/2024 8:24 AM WHEEL ASSEMBLER) Mammography Normal Impressions Vianney Garland, ALISON - 05/02/2024 8:24 AM WHEEL ASSEMBLER BI-RADS Category 1: Negative Carey HERNANDEZ HEALTH MAINTENANCE Edited Result - Final * Albumin Creatinine Ratio, Urine (02/28/2024 8:55 AM CDT) Pathologist [facility] [place] Creatinine, ur 151 20 - 275 mg/dL [facility] Microalbumin, ur 0.3 See Note: mg/dL [facility] Comment: Reference Range: Reference Range Not established Microalbumin/creat ratio 2 <30 mg/g creat [facility] Comment: The ADA defines abnormalities in albumin excretion as follows: Albuminuria Category Result (mg/g creatinine) Normal to Mildly increased <30 Moderately increased 30-299 Severely increased > OR = 300 The ADA recommends that at least two of three specimens collected within a 3-6 month period be abnormal before considering a patient to be within a diagnostic category. Urine 02/28/2024 8:55 AM CDT 02/28/2024 8:55 AM CDT Narrative [facility] - 02/29/2024 1:59 PM CDT FASTING:YES FASTING: YES Carey HERNANDEZ LAB URINE ORDERABLES Final Result Performing Organization Address City/[facility]/ZIP Co de Phone Number [facility] [address] [address] [phone] * Stool DNA - Cologuard (05/25/2022 10:55 PM WHEEL ASSEMBLER) Pathologist [facility] [place] Stool DNA - Cologuard Negative Negative [facility] (CLIA #:[id number]) Comment: NEGATIVE TEST RESULT. A negative Cologuard result indicates a low likelihood that a colorectal cancer (CRC) or advanced adenoma (adenomatous polyps with more advanced pre-malignant features) is present. The chance that a person with a negative Cologuard test has a colorectal cancer is less than 1 in 1500 (negative predictive value >99.9%) or has an advanced adenoma is less than 5.3% (negative predictive value 94.7%). These data are based on a prospective cross-sectional study of 10,000 individuals at average risk for colorectal cancer who were screened with both Cologuard and colonoscopy. (Matt Abad et al, N Engl J Med 2014;370(14):2620-3725) The normal value (reference range) for this assay is negative. COLOGUARD RE-SCREENING RECOMMENDATION: Periodic colorectal cancer screening is an important part of preventive healthcare for asymptomatic individuals at average risk for colorectal cancer. Following a negative Cologuard result, the [place] Cancer Society and U.S. Multi-Society Task Force screening guidelines recommend a Cologuard re-screening interval of 3 years. References: [place] [employer] Guideline for Colorectal Cancer Screening: https://www.cancer.org/cancer/ndcgs-yiyetp-nyrrth/qcdtlunsd-klrrmkwiy-viduapi/ac s-rec ommendations.html.; Christiano DK, Manfred QUIGLEY, Aayush FishK, Colorectal Cancer Screening: Recommendations for Physicians and Patients from the U.S. Multi-Society Task Force on Colorectal Cancer Screening , Am J Gastroenterology 2017; 112:3009-7267. TEST DESCRIPTION: Composite algorithmic analysis of stool DNA-biomarkers with hemoglobin immunoassay. Quantitative values of individual biomarkers are not reportable and are not associated with individual biomarker result reference ranges. Cologuard is intended for colorectal cancer screening of adults of either sex, 45 years or older, who are at average-risk for colorectal cancer (CRC). Cologuard has been approved for use by the U.S. FDA. The performance of Cologuard was established in a cross sectional study of average-risk adults aged 50-84. Cologuard performance in patients ages 45 to 49 years was estimated by sub-group analysis of near-age groups. Colonoscopies performed for a positive result may find as the most clinically significant lesion: colorectal cancer [4.0%], advanced adenoma (including sessile serrated polyps greater than or equal to 1cm diameter) [20%] or non- advanced adenoma [31%]; or no colorectal neoplasia [45%]. These estimates are derived from a prospective cross-sectional screening study of 10,000 individuals at average risk for colorectal cancer who were screened with both Cologuard and colonoscopy. (Matt Merchant al, N Engl J Med 2014;370(14):0139-4296.) Cologuard may produce a false negative or false positive result (no colorectal cancer or precancerous polyp present at colonoscopy follow up). A negative Cologuard test result does not guarantee the absence of CRC or advanced adenoma (pre-cancer). The current Cologuard screening interval is every 3 years. ([place] Cancer Society and U.S. Multi-Society Task Force). Cologuard performance data in a 10,000 patient pivotal study using colonoscopy as the reference method can be accessed at the following location: www.SQMOS.Labochema/results. Additional description of the Cologuard test process, warnings and precautions can be found at www.cologuard.com. Stool 05/25/2022 10:5 5 PM WHEEL ASSEMBLER 05/27/2022 1:05 PM WHEEL ASSEMBLER Carey HERNANDEZ LAB BODY FLUIDS AND STOOLS ORDERABLES Final Result [facility] (CLIA #:[id number]) [place] [address] [place] [address] from Last 3 Months or Most Recently Relevant to Health Maintenance Insurance [employer] Member Subscriber Plan / Payer (Ef fective 2023-Present) Name:Julianan Morrison Relation to Subscriber:Self Name:Julianna Morrison Payer ID:[id number] (NAIC) Type:[place] Address: [address] [facility] Care Teams Radio Maintainer Relationship Specialty Start Date End Date Carey Alexander PA [address] [place] [address] PCP - General Internal Medicine 01/05/19
--- OUTSIDE RECORDS SUMMARY | 2025-02-16 00:36 | XMS_ITS | Encounter Summary ---
Author Organization [facility] Address [address] [place] [id number] Care Team Providers Care Warehouse Picker Name Role Phone Amara Dumont NP Primary Care Provider [phone] Encounter Details Date Type Department Care Team (Latest Contact Info) Description 04/19/2018 Abstract [facility] , Karly Peacock MD Social History Tobacco Use Types Packs/Day Years Used Date Smoking Tobacco: Never Assessed Comments Unknown Sex and Gender Information Value Date Recorded Sex Assigned at Not on file Legal Sex Female 5:53 PM CDT Gender Identity Not on file Sexual Orientation Not on file documented as of this encounter Plan of Treatment Not on file documented as of this encounter Visit Diagnoses Not on filedocumented in this encounter Care Teams Warehouse Picker Relationship Specialty Start Date End Date [place] [address] PCP - General 10/14/15 documented as of this encounter
--- OUTSIDE RECORDS SUMMARY | 2025-02-16 00:36 | XMS_ITS | Clinical Summary ---
Author Organization [facility] Address [address] [place] [address] Care Team Providers Care Director Of Events Name Role Phone Amara Dumont ANTOINE Primary Care Provider Medications TRAZODONE 50 MG tabletIndicatio ns:Sleeping difficulty TAKE ONE TABLET BY MOUTH AT BEDTIME NEEDED FOR SLEEP 30 tablet 8 Active propranolol 40 MG tabletIndicatio ns:HTN (hypertension) Take 1 tablet (40 mg total) by mouth 2 (two) times daily. Appointment needed for future refills. 60 tablet 9 Active Social History Tobacco Use Types Packs/Day Years Used Date Smoking Tobacco: Never Assessed Comments Unknown Sex and Gender Information Value Date Recorded Sex Assigned at Not on file Legal Sex Female 5:53 PM CDT Gender Identity Not on file Sexual Orientation Not on file Last Filed Vital Signs Vital Sign Reading Time Taken Comments Blood Pressure 154/102 12/11/2016 1:56 PM CDT Pulse 96 12/11/2016 1:56 PM CDT Temperature - - Respiratory Rate - - Oxygen Saturation - - Inhaled Oxygen Concentration - - Weight 151 kg (333 lb) 12/11/2016 1:56 PM CDT Height 175.3 cm (5' 9) 11/04/2015 8:58 AM CDT Body Mass Index 49.18 11/04/2015 8:58 AM CDT Plan of Treatment Health Maintenance Due Date Last Done Comments Cervical Cancer Screening Pa p Smear (Age 30 to 64) Every 3 Years 1966 Colorectal Cancer Screening Colonoscopy (10 Years) 1966 Annual Physical 1969 DTaP, Tdap and Td Vaccines ( 1 - Tdap) 1985 Hepatitis B Vaccines (1 of 3 - 19+ 3-dose series) 1985 Cervical Cancer Screening Pa p with HPV Testing (Age 30 to 64) Every 5 Years 1996 Cervical Cancer Screening with HPV 1996 Pneumococcal Vaccine: 50+ Ye ars (1 of 1 - PCV) 2016 Zoster Vaccines (1 of 2) 2016 Mammogram Screening 12/24/2017 12/25/2015 COVID-19 Vaccine (1 - 2023-2 5 season) 2025 Hepatitis C Completed 12/21/2014 Meningococcal B Vaccine Aged Out No l onger eligible based on patient's age to complete this topic Meningococcal Vaccine Aged Out No kaveh inocencia eligible based on patient's age to complete this topic RSV Immunizations Under 20 Months Aged Out No longer eligible based on patient's age to complete this topic Procedures Procedure Name Priority Date/Time Associated Diagnosis Comments MG SCREENING MICHAEL DIGI Routine 12/25/2015 12:00 AM CDT HEPATITIS C ANTIBODY Routine 12/21/2014 9:03 AM CDT from Last 3 Months or Most Recently Relevant to Health Maintenance Results * MG SCREENING MICHAEL DIGI (12/25/2015 12:00 AM CDT) Anatomical Region Laterality Modality Breast Bilateral Mammography 12/25/2015 12/25/2015 Narrative 12/31/2015 8:45 AM CDT Bi-Rads category 1- Negative Procedure Note , Generic Conversion, - 04/06/2018 Bi-Rads category 1- Negative Generic Conversion Md ARDON MAMMO Final R esult * HEPATITIS C ANTIBODY (12/21/2014 9:03 AM CDT) HEPATITIS C AB NON-REACTIVE TESTING PERFORMED AT [facility] [id number] [place] [address] NR [facility] TO EPIC CONVERSION 12/21/2014 9:03 AM CDT 12/21/2014 9:03 AM CDT Narrative [facility] EP[facility] CONVERSION - 12/24/2014 7:14 PM CDT Result Communication: Mail Results to Patient Amara Dumont NP LABORATORY Final Result [facility] CONVERSION from Last 3 Months or Most Recently Relevant to Health Maintenance Care Teams Director Of Events Relationship Specialty Start Date End Date Amara [place] [address] PCP - General 10/14/15
--- NOTE | 2025-02-16 00:52 | ED.GENADULT ---
HPI - General Adult General Chief complaint: Psychiatric Symptoms Stated complaint: psych eval, on the verge of mental breakdown Time Seen by Provider: 02/16/25 00:27 History of Present Illness HPI narrative: Patient is a 59 year old female who presents emergency department this evening complaining of a mental breakdown. Patient states that she just was feeling very emotional, overwhelmed. was present with the patient at bedside states that symptoms started a few days ago and he has just noticed that she has been more forgetful, no motivation to do anything and patient admits that she does take medications for hypertension, anxiety and depression but has not taken them in the past few days because she did not feel like it. Patient denies any active suicidal or homicidal ideations. Denies any history of self-harm. Admits to previous history of psychiatric hospitalization but states that this was 15 years ago. No additional symptoms or concerns at this time. Related Data Home Medications ?Medication ?Instructions ?Recorded ?Confirmed ?Last Taken ?Type propranolol 40 mg tablet 40 mg PO Q12H 05/28/22 02/29/24 Unknown History tolterodine 4 mg capsule,extended 4 mg PO DAILY 05/28/22 02/29/24 Unknown History release 24 hr chlorthalidone 25 mg tablet 25 mg PO DAILY 02/29/24 02/29/24 Unknown History duloxetine 30 mg capsule,delayed mg PO 02/29/24 02/29/24 Unknown History release tirzepatide 10 mg/0.5 mL mg subcut 02/29/24 02/29/24 Unknown History subcutaneous pen injector (Mounjaro) Allergies Allergy/AdvReac Type Severity Reaction Status Date / Time No Known Allergies Allergy Verified 02/15/25 22:30 Review of Systems Review of Systems: All systems are reviewed and are negative unless stated otherwise in the HPI. PMFSH Past Medical History Medical History Hx of cancer of endometrium 2021 s/p total hysterectomy History of hypertension Arthritis Anxiety and depression Obesity Surgical History Surgical History H/O hernia repair Hx of cholecystectomy History of hysteroscopy (~2015) Hscope D&C / Ablation Family History Family History Other Breast cancer maternal aunt Lung cancer maternal aunt Mother Hypertension Father Diabetes mellitus Social History Social History Smoking status: Never smoker Alcohol intake: current Alcohol use details: social 1 month Substance use: never Substance use type: does not use Living arrangements: other Additional living arrangements comments: Occupation/Education: occupation Additional occupation/education comments: 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 HEENT: PERRL, no rhinorrhea, no post nasal drip, oropharynx clear. Neck: Trachea midline, no JVD, no lymphadenopathy. Cardiovascular: Regular rate and rhythm, no murmurs, rubs or gallops, no peripheral edema. Respiratory: Clear to auscultation bilaterally, no tachypnea, no wheezing, no rhonchi, no rubs, no respiratory distress. Abdomen: Soft, nontender, nondistended, no rebound, no guarding, no peritoneal signs. Musculoskeletal: No joint swelling or deformity, normal muscle tone. Skin: No rashes or petechia, no signs of infection. Psychiatric: Alert and oriented, normal behavior and judgment for situation. Neurological: Alert and oriented to person, place, and time. Follows all commands. No focal deficits, speech is clear and fluent. Course Vital Signs Vital signs: Vital Signs Temperature 97.7 F 02/15/25 22:20 Pulse Rate 98 02/15/25 22:20 Respiratory Rate 16 02/15/25 22:20 Blood Pressure 154/98 H 02/15/25 22:20 Pulse Oximetry 78 L 02/15/25 22:20 Oxygen Delivery Room Air 02/15/25 22:20 Temperature 97.7 F 02/15/25 22:20 Pulse Rate 98 02/15/25 22:20 Respiratory Rate 16 02/15/25 22:20 Blood Pressure 154/98 H 02/15/25 22:20 Pulse Oximetry 78 L 02/15/25 22:20 Oxygen Delivery Room Air 02/15/25 22:20 Medical Decision Making MDM Narrative Medical decision making narrative: The patient was evaluated by myself in the emergency department. History is obtained from patient who is an independent historian along with patient's who is present with the patient at bedside and physical exam was performed. External medical records were reviewed at this time. IV was established and pertinent tests were ordered. Laboratory results obtained revealing no acute process. Urinalysis pending. Differential diagnosis considerations include acute stress reaction, depression, anxiety, suicidal, homicidal ideations. Comorbidities impacting this visit include history of depression and anxiety. I have evaluated and discussed social determinants of health with the patient that could potentially impact subsequent diagnosis and treatment plans. 5 hours into patient's ED stay, states that he does not want to wait for urinalysis/psychiatric evaluation as this process has taken too long and wants to take the patient home and have her follow-up with her doctors as an outpatient. Patient and her left the ED prior to be formally discharge in receiving the discharge paperwork. Vital Signs Vital Signs: Vital Signs Temperature 97.7 F 02/15/25 22:20 Pulse Rate 98 02/15/25 22:20 Respiratory Rate 16 02/15/25 22:20 Blood Pressure 154/98 H 02/15/25 22:20 Pulse Oximetry 78 L 02/15/25 22:20 Oxygen Delivery Room Air 02/15/25 22:20 Temperature 97.7 F 02/15/25 22:20 Pulse Rate 98 02/15/25 22:20 Respiratory Rate 16 02/15/25 22:20 Blood Pressure 154/98 H 02/15/25 22:20 Pulse Oximetry 78 L 02/15/25 22:20 Oxygen Delivery Room Air 02/15/25 22:20 Lab Data 02/16/25 00:54 02/16/25 00:54 Labs: Lab Results 02/16/25 02/16/25 Range/Units 00:54 01:32 WBC 8.2 (4.5-10.0) K/mm3 RBC 5.25 (4.2-5.4) M/mm3 Hgb 15.8 H (12.0-15.0) g/dL Hct 46.3 (37.0-47.0) % MCV 88.2 (80-100) fl MCH 30.1 (26-34) pg MCHC 34.1 (32-36) g/dl RDW 12.8 (11.5-14.5) % Plt Count 226 (150-375) k/mm3 MPV 10.2 (7.4-10.4) fl Immature Gran % (Auto) 0.2 (0-0.5) % Neut % (Auto) 73.3 H (45.5-73.1) % Lymph % (Auto) 18.8 (18.3-44.2) % [place] % (Auto) 6.6 (2.6-8.5) % Eos % (Auto) 0.7 (0-4.4) % Baso % (Auto) 0.4 (0.2-1.2) % Lymph # (Auto) 1.55 (0.9-3.2) K/mm3 [place] # (Auto) 0.5 (0.1-0.6) K/mm3 Eos # (Auto) 0.1 (0-0.3) K/mm3 Baso # (Auto) 0.0 (0.0-0.1) K/mm3 Abs Immat Gran (auto) 0.02 (0.00-0.031) K/mm3 Absolute Neuts (auto) 6.0 (1.3-6.7) K/mm3 Absolute Nucleated RBC 0.000 (0.0-0.012) K/mm3 Nucleated RBC % 0.0 (0.0-0.2) % Sodium 135 L (137-145) mmol/L Potassium 3.3 L (3.4-5.0) mmol/L Chloride 100 (98-107) mmol/L Carbon Dioxide 26 (22-30) mmol/L Anion Gap 9 (4-12) mmol/L BUN 9 (7-17) mg/dL Creatinine 0.80 (0.7-1.0) mg/dL Estim Creat Clear Calc 98 ml/min Estimated GFR > 60 (59 - ) Glucose 117 H (65-110) mg/dL Calcium 9.8 (8.4-10.2) mg/dL Magnesium 1.9 (1.6-2.3) mg/dL Total Bilirubin 1.4 H (0.2-1.3) mg/dL AST 29 (14-36) U/L ALT 29 (6-35) U/L Alkaline Phosphatase 84 (38-126) U/L Total Protein 7.7 (6.3-8.2) g/dL Albumin 4.3 (3.5-5.1) g/dL TSH (Reflex) 0.413 L (0.465-4.68) uIU/mL Free T4 Pending Salicylates < 1.0 L (2-20) mg/dL Acetaminophen < 10 L (10-30) ug/mL Ethyl Alcohol < 10 (<10) mg/dL Influenza A (RT-PCR) Negative (Negative) Influenza B (RT-PCR) Negative (Negative) RSV (RT-PCR) Negative (Negative) SARS-CoV-2 RNA (RT-PCR) Negative (Negative) Discharge Plan Discharge Clinical Impression: Acute stress reaction, Depression Patient Disposition: Home Condition: Stable Instructions: Antibiotic Form Patient Language: Yakut Prescriptions: No Action Mounjaro 10 mg/0.5 mL pen injector subcut duloxetine 30 mg capsule,delayed release(DR/EC) PO chlorthalidone 25 mg tablet 25 mg PO DAILY propranolol 40 mg tablet 40 mg PO Q12H tolterodine 4 mg capsule,extended release 24hr 4 mg PO DAILY Follow-up/Referrals: Benjamin,MARY Patino [Primary Care Provider, Unknown] - 3 Days Time of Disposition: 03:23
[2025-02-16 01:00] LABS: Hematocrit 46.3 % (37.0-47.0); Hemoglobin 15.8 g/dL (12.0-15.0); Immature Granulocyte Percent A 0.2 % (0-0.5); Lymphocytes Absolute Auto 1.55 K/mm3 (0.9-3.2); Mean Corpuscular HGB Conc 34.1 g/dl (32-36); Mean Corpuscular Hemoglobin 30.1 pg (26-34); Mean Corpuscular Volume 88.2 fl (80-100); Nucleated Red Blood Cells Absolute Auto 0.000 K/mm3 (0.0-0.012); Nucleated Red Blood Cells Perc 0.0 % (0.0-0.2); Platelet Count Result 226 k/mm3 (150-375); Red Blood Count 5.25 M/mm3 (4.2-5.4); White Blood Count 8.2 K/mm3 (4.5-10.0)
[2025-02-16 01:12] LABS: Acetaminophen < 10 ug/mL (10-30); Salicylate < 1.0 mg/dL (2-20)
[2025-02-16 01:13] LABS: Alanine Aminotransferase 29 U/L (6-35); Albumin Level 4.3 g/dL (3.5-5.1); Alkaline Phosphatase 84 U/L (38-126); Anion Gap 9 mmol/L (4-12); Aspartate Amino Transferase 29 U/L (14-36); Bilirubin,Total 1.4 mg/dL (0.2-1.3); Blood Urea Nitrogen 9 mg/dL (7-17); Calcium 9.8 mg/dL (8.4-10.2); Carbon Dioxide 26 mmol/L (22-30); Chloride 100 mmol/L (98-107); Estimated CRCL calculation 98 ml/min; Estimated Glomerular Filt Rate > 60; Glucose 117 mg/dL (65-110); Magnesium 1.9 mg/dL (1.6-2.3); Potassium 3.3 mmol/L (3.4-5.0); Sodium 135 mmol/L (137-145); Total Protein 7.7 g/dL (6.3-8.2)
[2025-02-16 01:43] LABS: Thyroid Stimulating Hormone Reflex 0.413 uIU/mL (0.465-4.68)
[2025-02-16 02:13] LABS: Influenza A QL RT-PCR Negative (Negative); Influenza B QL RT-PCR Negative (Negative); RSV RNA, RT-PCR Negative (Negative); SARS-CoV-2 RNA PCR Negative (Negative)
--- NOTE | 2025-02-16 03:32 | PC.NURSE ---
patients up to charge nurse stating that they have been waiting too long for crisis to arrive and evaluate patient. stated he would be taking patient to [facility] then stated he planned on suing everyone for the ridiculous treatment they recieved
[2025-02-16 04:45] LABS: Free T4 Free Thyroxine Reflex 1.61 ng/dL (0.78-2.19)
[2025-02-16 05:49] LABS: Total Triiodothyronine (T3) 1.26 NG/ML (0.82-1.58)
== END 2025-02-16 03:38 | disposition home or self-care (01) ==
PROVIDERS: Emergency Provider Emergency Medicine; PCP Physician Assistant
DX: F43.0 Acute stress reaction (principal); F32.A Depression, unspecified; Z11.52 Encounter for screening for COVID-19; T46.5X6A Underdosing of other antihypertensive drugs, initial encounter; T43.506A Underdosing of unspecified antipsychotics and neuroleptics, initial encounter; Z91.128 Patient's intentional underdosing of medication regimen for other reason; I10 Essential (primary) hypertension; E66.9 Obesity, unspecified; Z68.39 Body mass index [BMI] 39.0-39.9, adult; M19.90 Unspecified osteoarthritis, unspecified site; F41.9 Anxiety disorder, unspecified; Z85.42 Personal history of malignant neoplasm of other parts of uterus; Z90.710 Acquired absence of both cervix and uterus; Z90.49 Acquired absence of other specified parts of digestive tract; Z79.85 Long-term (current) use of injectable non-insulin antidiabetic drugs; Z79.899 Other long term (current) drug therapy
CPT/HCPCS: 36415; 80053; 80143; 80179; 82077; 83735; 84439; 84443; 84480; 85025; 87637; 99284